=== PATIENT | female | born 1990 | race Caucasian/White ===

== ENCOUNTER → 2019-12-30 | Outpatient (CLI) | payer OTHER ==
[2019-12-30 14:27] LABS: BASO % 0.2 % (0.0-1.0); EOS % 0.4 % (0.0-3.0); HEMATOCRIT 40.9 % (36.0-47.0); HEMOGLOBIN 13.6 g/dl (12.0-15.5); LYMPH # 1.5 10^3/uL (1.5-5.0); LYMPH % 15.9 % (24.0-44.0); MEAN CORPUSCULAR HEMOGLOBIN 30.4 pg (27.0-33.0); MEAN CORPUSCULAR HGB CONC 33.3 g/dl (32.0-36.5); MEAN CORPUSCULAR VOLUME 91.3 fl (80.0-96.0); MONO # 0.7 10^3/uL (0.0-0.8); MONO % 6.7 % (0.0-5.0); NEUTROPHILS # 7.4 10^3/uL (1.5-8.5); NEUTROPHILS % 76.5 % (36.0-66.0); PLATELET COUNT, AUTOMATED 316 10^3/uL (150-450); RED BLOOD COUNT 4.48 10^6/uL (4.00-5.40); WHITE BLOOD COUNT 9.6 10^3/uL (4.0-10.0)
[2019-12-30 15:14] LABS: HEPATITIS C VIRUS ABY INDEX 0.2 INDEX (<0.8); HIV 1&2 SCREEN CENTAUR NEGATIVE (NEGATIVE)
[2019-12-30 15:33] LABS: CHLAMYDIA DNA AMPLIFICATION NEGATIVE (NEGATIVE); GC DNA AMPLIFICATION NEGATIVE (NEGATIVE)
== END ==
LOC: M PLALAB 11:09
PROVIDERS: ATTEND Advanced Practice Midwife
DX: Z34.01 Encounter for supervision of normal first pregnancy, first trimester (principal); Z36.89 Encounter for other specified antenatal screening

== ENCOUNTER → 2020-02-04 | Outpatient (CLI) | payer OTHER | LOC: M PLALAB 09:26 | PROVIDERS: ATTEND Advanced Practice Midwife | DX: Z34.02 Encounter for supervision of normal first pregnancy, second trimester (principal); Z3A.00 Weeks of gestation of pregnancy not specified ==

== ENCOUNTER → 2020-03-10 | Outpatient (CLI) | payer OTHER ==
--- NOTE | 2020-03-10 16:10 | REP ---
INDICATION: ANATOMY. Supervision of . COMPARISON: None. TECHNIQUE: Transabdominal obstetric sonography. FINDINGS: Scanning through the gravid uterus demonstrates a viable single intrauterine gestation in variable lie. motion is observed and heart rate is recorded at 138 beats per minute. A fundal placenta is seen, grade 0, without evidence of placenta previa. Amniotic fluid is subjectively normal. Closed cervical length is measured at 4.0 cm transabdominally. No extrauterine abnormality is observed. No anomaly is seen. The following anatomic structures are identified and felt to be sonographically unremarkable: cranium, choroid plexus, cavum, cerebellum and posterior fossa, face and profile, lungs, four-chamber heart with left and right ventricular outflow tract views, diaphragm, left-sided stomach, abdominal wall cord insertion, three-vessel umbilical cord, kidneys and bladder, spine, and upper and lower extremities. Biometry chart: BPD 4.5 cm, 19 weeks 4 days Head circumference 17.0 cm, 19 weeks 4 days Abdominal circumference 14.3 cm, 19 weeks 4 days Femur length 3.1 cm, 19 weeks 5 days Humeral length 3.0 cm, 19 weeks 5 days HC/AC ratio normal 1.19 Cephalic index normal 0.73 Estimated weight 304 g, 0 lb 10 oz, 42nd percentile for 19 weeks 3 days. IMPRESSION: Viable single intrauterine gestation at 19 weeks 4 days by today's composite sonographic criteria. AGUEDA by today's sonography July 31, 2020. No complication identified. anatomic survey is felt to be complete. <Electronically signed by Rick Jay > 03/10/20 [id number]
== END ==
LOC: M WHC 14:17
PROVIDERS: ATTEND Advanced Practice Midwife
DX: Z36.89 Encounter for other specified antenatal screening (principal); Z3A.19 19 weeks gestation of pregnancy

== ENCOUNTER → 2020-05-19 | Outpatient (REF) | payer OTHER ==
[2020-05-19 15:49] LABS: HEMATOCRIT 34.1 % (36.0-47.0); HEMOGLOBIN 10.7 g/dl (12.0-15.5); MEAN CORPUSCULAR HEMOGLOBIN 30.4 pg (27.0-33.0); MEAN CORPUSCULAR HGB CONC 31.4 g/dl (32.0-36.5); MEAN CORPUSCULAR VOLUME 96.9 fl (80.0-96.0); PLATELET COUNT, AUTOMATED 277 10^3/uL (150-450); RED BLOOD COUNT 3.52 10^6/uL (4.00-5.40); WHITE BLOOD COUNT 9.7 10^3/uL (4.0-10.0)
== END ==
LOC: M PLALAB 11:28
PROVIDERS: ATTEND Advanced Practice Midwife
DX: Z3A.25 25 weeks gestation of pregnancy (principal)
CPT/HCPCS: 36415; 82950; 85027; 86850; 86900; 86901; G0463

== ENCOUNTER → 2020-05-24 | Outpatient (CLI) | payer OTHER | LOC: M LAB 06:49 | PROVIDERS: ATTEND Advanced Practice Midwife | DX: Z36.89 Encounter for other specified antenatal screening (principal); Z3A.29 29 weeks gestation of pregnancy ==

== ENCOUNTER → 2020-07-01 | Outpatient (REF) | payer OTHER | LOC: M PLALAB 09:49 | PROVIDERS: ATTEND Obstetrics & Gynecology | DX: Z3A.35 35 weeks gestation of pregnancy (principal) ==

== ENCOUNTER 2020-07-28 05:27 | Inpatient (IN) | payer OTHER ==
[~2020-07-28] VITALS: Ht 152.4 cm; Wt 75.1 kg
[2020-07-28] VITALS (44 sets, daily range): BP systolic 93–140; BP diastolic 51–79
[2020-07-28] MEDS ORDERED: LACTATED RINGER'S 1000 ML IV STA (06:09)
[2020-07-28] MEDS ORDERED: LIDOCAINE 1% MDV 20ML VIAL INFIL PRN (06:10)
[2020-07-28] MEDS ORDERED: OXYTOCIN DRIP 30 UNITS in IV 1 EA IV PRN (06:10)
[2020-07-28] MEDS ORDERED: METHYLERGONOVINE MALEATE 0.2 MG/ML VIAL (J2210) IM PRN (06:10)
[2020-07-28] MEDS ORDERED: MULTTAB20 PO (06:47)
[2020-07-28 07:03] LABS: HEMATOCRIT 35.3 % (36.0-47.0); HEMOGLOBIN 11.1 g/dl (12.0-15.5); MEAN CORPUSCULAR HEMOGLOBIN 30.2 pg (27.0-33.0); MEAN CORPUSCULAR HGB CONC 31.4 g/dl (32.0-36.5); MEAN CORPUSCULAR VOLUME 95.9 fl (80.0-96.0); PLATELET COUNT, AUTOMATED 230 10^3/uL (150-450); RED BLOOD COUNT 3.68 10^6/uL (4.00-5.40); WHITE BLOOD COUNT 9.5 10^3/uL (4.0-10.0)
[2020-07-28 07:33] LABS: ALT/SGPT 13 U/L (12-78); BILIRUBIN,TOTAL 0.2 MG/DL (0.2-1.0); CREATININE FOR GFR 0.54 MG/DL (0.55-1.30); GLOMERULAR FILTRATION RATE > 60.0 (>60); LDH LACTATE DEHYDROGENASE 251 U/L (84-246); URIC ACID 3.5 MG/DL (2.6-6.0)
[2020-07-28] MEDS ORDERED: FENTANYL 2MCG/ML ROPIVACAINE 0.2% IN 0.9% NACL 100ML IVBAG As Ordered ONE (07:35)
--- NOTE | 2020-07-28 07:39 | HPE ---
HISTORY AND PHYSICAL DATE OF ADMISSION: 07/28/2020 HISTORY OF PRESENT ILLNESS: Felicia is a 29-year-old 1 para 0, 39-5/7 weeks gestation, estimated date of confinement (EDC) of 07/30/2020 based on last menstrual period and confirmed by first trimester ultrasound. She reports to labor and delivery with complaint of uncomfortable contractions that have been irregular until the last few hours since Saturday evening. She does report positive bloody show. Denies leakage of fluid. Fetus has been active. Her care was initiated at [facility] in first trimester. Her course has been complicated by rubella equivocal with a plan to immunize her . OBSTETRIC HISTORY: Primigravida. OBSTETRIC LABS: A positive, antibody screen negative. Syphilis negative. Gonorrhea and chlamydia negative. Hepatitis B negative. Hepatitis C negative. HIV negative. Rubella nonimmune. Gestational diabetic screening normal 144. Three-hour glucose tolerance test: fasting 89, one hour 165, two hour 123 and three hour 138. GBS is negative. PAST MEDICAL HISTORY: Childhood varicella. SURGERIES: None. FAMILY HISTORY: Kidney transplant. SOCIAL HISTORY: Nonsmoker. Denies alcohol and drug use. No history of sexually-transmitted infections. Denies history of abuse; physical, sexual and emotional. Father of baby is at bedside and supportive. ALLERGIES: ROCEPHIN - hives. PHYSICAL EXAMINATION (OBJECTIVE): Blood pressure is elevated at 140/73. She is alert and oriented times 3. She does appear uncomfortable with her contractions; deep breathing and focusing. heart rate is 135 with moderate variability; positive accelerations, no decelerations. Contractions are every 2-4 minutes and they do palpate mild. Sterile Vaginal Exam: 4 cm dilated; 80% effaced; -2 station; positive bloody show. Her abdomen is gravid, cephalic presentation. ASSESSMENT: Intrauterine at 39-5/7 weeks; heart rate category 1, active labor at term. PLAN: Admit the patient to labor and delivery. Routine labs with the addition of a preeclampsia profile. Spot urine. Out of bed ad margaret. Clear liquid diet. She does desire an epidural for her labor coping, so IV fluid bolus has been ordered as well as an anesthesia consult. The patient has been verbally consented for emergency surgery and blood products. I do anticipate continued labor progress. Will likely consider Pitocin for labor augmentation.
[2020-07-28] MEDS: LR 1,000 ML IV SCH ×2 (07:53→15:33)
[2020-07-28] MEDS ORDERED: ONDANSETRON 4MG/2ML VIAL IV PRN (08:35)
[2020-07-28] MEDS ORDERED: LACTATED RINGER'S 1000 ML IV PRN (08:35)
[2020-07-28] MEDS ORDERED: EPIDURAL/PCA KEYS XX PRN (08:35)
[2020-07-28] MEDS ORDERED: NALOXONE INJ 0.4MG/1ML VIAL (J2310 PER 1MG) IV PRN (08:35)
[2020-07-28] MEDS ORDERED: diphenhydrAMINE 50MG/ML VIAL (J1200) IV PRN (08:35)
[2020-07-28] MEDS ORDERED: EPIDURAL COMMENT XX SCH (08:35)
[2020-07-28] MEDS ORDERED: REFRIGERATOR IV KEYS XX PRN (08:35)
[2020-07-28] MEDS ORDERED: ePHEDrine SULFATE 25 MG/5 ML(5MG/ML) SYRINGE IV PRN (08:35)
[2020-07-28] MEDS: FENTANYL/ROPIVACAINE/NACL BAG 100 ML EPIDURAL SCH ×2 (09:13→16:39)
[2020-07-28] MEDS: OXYTOCIN DRIP 30 UNITS in IV 1 EA IV SCH ×2 (09:30→15:34)
[2020-07-28 09:51] LABS: CREATININE,RANDOM URINE 21.9 MG/DL; TOTAL PROTEIN,RANDOM URINE 5.3 MG/DL (0.0-12.0)
--- NOTE | 2020-07-28 11:02 | IPNPDOC ---
Obstetrical Progress Note Date of Service Jul 28, 2020 Subjective Patient is comfortable with her epidural. +bloody show, but no reports of large loss of fluid. +FM. Objective Vital Signs Date Time Temp Pulse Resp B/P (MAP) Pulse Ox O2 Delivery O2 Flow Rate FiO2 07/28/20 10:01 78 106/51 (69) 07/28/20 08:39 98.3 16 Assessment Heart Rate Tracing: Category I Tocometer Frequency: every 3-7 min. Sterile Vaginal Examination Dilation: 5 cm Effacement (%): 90% Station: -2 Cervical Consistency: Soft Cervical Position: Anterior Postion/Presentation: Cephalic presentation Assessment and Plan Status: Reassuring Group B Streptococcus: Negative Anticipate: Vaginal Delivery Additional Comments Active labor. Good pain control with epidural. Reassuring maternal and status. Membranes still intact. Continue with low dose Pitocin protocol for labor augmentation. JEANNE MCDANIEL DO Jul 28, 2020 11:02
--- NOTE | 2020-07-28 18:48 | IPNPDOC ---
Obstetrical Progress Note Date of Service Jul 28, 2020 Subjective Patient is starting to feel nauseated and has rectovaginal pressure. Objective Vital Signs Date Time Temp Pulse Resp B/P (MAP) Pulse Ox O2 Delivery O2 Flow Rate FiO2 07/28/20 18:31 99.4 82 123/69 (87) 07/28/20 17:01 16 Assessment Heart Rate Tracing: Category I Tocometer Contractions: Yes Frequency: every 2-5 min. Sterile Vaginal Examination Dilation: complete Effacement (%): 100% Station: +1 Assessment and Plan Status: Reassuring Anticipate: Vaginal Delivery Additional Comments Plan is to start maternal pushing efforts soon. Continue with Pitocin augmentation. JEANNE MCDANIEL DO Jul 28, 2020 18:48
[2020-07-28] MEDS ORDERED: LR 1,000 ML IV SCH (21:18)
[2020-07-28] MEDS ORDERED: OXYTOCIN DRIP 30 UNITS in IV 1 EA IV SCH (21:18)
[2020-07-28] MEDS ORDERED: ACETAMINOPHEN 500 MG TAB PO PRN (21:20)
[2020-07-28] MEDS ORDERED: IBUPROFEN 600MG TAB PO PRN (21:20)
[2020-07-28] MEDS ORDERED: MEASLES,MUMPS,RUBELLA VACCINE INJ (MMR-II) (90707) SC SCH (21:20)
[2020-07-28] MEDS ORDERED: ACETAMINOPHEN TAB 650MG DOSE (2X325MG) PO PRN (21:20)
[2020-07-28] MEDS ORDERED: DIBUCAINE 1% OINTMENT 30GM TOP PRN (21:20)
[2020-07-28] MEDS ORDERED: DOCUSATE SODIUM 100MG CAPSULE PO PRN (21:20)
[2020-07-28] MEDS ORDERED: RHOGAM 300 MCG (1500 IU) INJ (J2790) IM SCH (21:20)
--- NOTE | 2020-07-28 21:23 | DNPDOC ---
[facility] Delivery Note Delivery Note DATE OF DELIVERY: 07/28/20 TIME OF DELIVERY: 2102 Spontaneous vaginal delivery. TOBACCO STRIPPER: Dr. Dez Ragland DO FACOG ANESTHESIA: Epidural LACERATION: Second degree ESTIMATED BLOOD LOSS: 200 mL. FINDINGS: 7 pound 8 ounce (3410g) Female infant, Score 9 and 9. DELIVERY SUMMARY: The active phase and second stage of labor progressed in normal fashion.. She received Pitocin augmentation throughout her labor course. The head delivered in the TREMAINE position, and restituted LOT. No nuchal cord was noted. The anterior shoulder delivered with gentle downward guidance and the remainder of the body delivered with ease. The baby was placed on the patient's chest. Delayed cord clamping occurred for approximately 1 minute. The cord was then doubly clamped and cut. IV Pitocin was bolused to actively manage the third stage of labor. The placenta delivered intact without any difficulty within 10 minutes of delivery. The uterine fundus was noted to be firm and 2 cm below the umbilicus. The cervix, vagina, vulva and perineum were inspected. A second-degree laceration was noted and immediately repaired with 3-0 Vicryl in typical fashion. Excellent hemostasis was noted. Sponge, needle and instrument counts were correct per protocol. DO SARAH Danielle JONATHAN R. DO Jul 28, 2020 21:23
[2020-07-29] MEDS: IBUPROFEN 800 MG TAB PO PRN (05:39)
[2020-07-29 06:00] VITALS: BP 120/78
--- NOTE | 2020-07-29 08:02 | IPNPDOC ---
Progress Note Date of Service: Jul 29, 2020 Day#: 1 Progress Note SUBJECT: Status post . She has been ambulating, voiding spontaneously without issue and tolerating regular diet. Lochia decreasing/minimal. Pain is well-controlled. Denies headache, visual changes, right upper quadrant pain, shortness breath or chest pain. OBJECTIVE: VITAL SIGNS: Within normal limits, afebrile. Alert and oriented times three. Abdomen: Fundus firm at U-2. Soft, NTTP. ASSESSMENT: Status post uncomplicated spontaneous vaginal delivery. Vitals within normal limits, afebrile, hemodynamically stable with no evidence of infection. PLAN: Discharge to home tomorrow. Tylenol and Motrin for pain. Routine instructions/precautions reviewed. Routine PP visit in 6 weeks in clinic. VS, I&O, 24H, Isidrobone Vital Signs/I&O Vital Signs Date Time Temp Pulse Resp B/P (MAP) Pulse Ox O2 Delivery O2 Flow Rate FiO2 07/29/20 06:00 98.5 75 16 120/78 (92) 99 Room Air I&O- Last 24 Hours up to 6 AM 07/29/20 06:00 Intake Total 4307 ml Output Total 3900 ml Balance 407 ml Laboratory Data 24H LABS Laboratory Tests 2 07/28/20 09:09: Urine Random Creatinine 21.9, Urine Random Total Protein 5.3 JEANNE MCDANIEL DO Jul 29, 2020 08:02
[2020-07-29] MEDS: PRENATAL VITAMINS CHEWABLE TABLET PO SCH (08:05)
[2020-07-29 18:00] VITALS: BP_SYST 115; BP_SYST 122; BP_DIAS 71
[2020-07-30] MEDS: IBUPROFEN 800 MG TAB PO PRN (01:36)
[2020-07-30 06:00] VITALS: BP 129/73
[2020-07-30] MEDS: PRENATAL VITAMINS CHEWABLE TABLET PO SCH (08:15)
== END 2020-07-30 14:25 | disposition home or self-care (01) | DRG 807 ==
LOC: M LDO 05:27 → M LDI 06:07 → M OBS 22:55
PROVIDERS: ADMIT Advanced Practice Midwife; ATTEND Obstetrics & Gynecology
PROC: 10E0XZZ Delivery of Products of Conception, External Approach (ICD-10-PCS; principal; 2020-07-28)
PROC: 0KQM0ZZ Repair Perineum Muscle, Open Approach (ICD-10-PCS; 2020-07-28)
PROC: 10907ZC Drainage of Amniotic Fluid, Therapeutic from Products of Conception, Via Natural or Artificial Opening (ICD-10-PCS; 2020-07-28)
DX: O70.1 Second degree perineal laceration during delivery (principal); Z37.0 Single live birth; Z3A.39 39 weeks gestation of pregnancy

== ENCOUNTER → 2020-10-11 | Outpatient (REF) | payer OTHER ==
[~2020-10-11] MED LIST: MULTTAB20 PO
== END ==
LOC: M SFHCWAGY 18:30
PROVIDERS: ATTEND Advanced Practice Midwife
DX: Z12.4 Encounter for screening for malignant neoplasm of cervix (principal)